=== PATIENT | male | born 1960 | race Caucasian/White ===

== ENCOUNTER 2023-12-07 14:29 | Emergency (ER) | payer SELFPAY ==
[2023-12-07 14:36] VITALS: BP 183/104; PULSE 91
[2023-12-07] MEDS: Tetracaine HCl/PF 0.5% 4 ML Bottle EYEBOTH ONE (15:31)
[2023-12-07] MEDS: Acetaminophen/oxyCODONE 325-5 MG Tab PO ONE (17:46)
[2023-12-07] MEDS: Diphtheria,Pertussis(Acell),Tetanus Vaccine 0.5 ML Syringe IM ONE (17:46)
== END 2023-12-07 17:51 | disposition home or self-care (01) ==
LOC: MW.ED 14:29
DX: S05.92XA Unspecified injury of left eye and orbit, initial encounter (principal); Z75.8 Other problems related to medical facilities and other health care; I10 Essential (primary) hypertension; E66.9 Obesity, unspecified; Z68.37 Body mass index [BMI] 37.0-37.9, adult; Z23 Encounter for immunization; X58.XXXA Exposure to other specified factors, initial encounter
CPT/HCPCS: 90471; 90715; 99283; A9270; J3490